=== PATIENT | male | born 1960 | race Caucasian/White ===

== ENCOUNTER → 2019-02-10 06:45 | Outpatient (CLI) | payer OTHER ==
[~2019-02-10 06:45] MED LIST: CILOSTAZOL PO; ENALAPRIL MALE2.5 MG PO; FORTAMET500 MG; KLONOPIN PO; LOVASTATIN10 MG PO; METFORMIN HCL500 MG PO; NEURONTIN800 MG PO; PROTONIX40 MG PO; RISPERDAL3 MG PO; SIMVASTATIN5 MG; TOPROL XL50 M1 PO; VASOTEC2.5 MG; [UNRECOGNIZED DRUG - OTHER] PO
== END | disposition home or self-care (01) ==
LOC: LAB 06:45 → RAD 06:45
DX: I10 Essential (primary) hypertension (principal); M46.96 Unspecified inflammatory spondylopathy, lumbar region; Z01.818 Encounter for other preprocedural examination

== ENCOUNTER 2019-02-19 04:55 | Day surgery (SDC) | payer OTHER | END 2019-02-19 10:15 | disposition home or self-care (01) | LOC: CIR.AMB 04:55 | DX: M51.16 Intervertebral disc disorders with radiculopathy, lumbar region (principal) ==

== ENCOUNTER 2022-06-17 09:48 | Outpatient (CLI) | payer OTHER | END 2022-06-17 09:52 | disposition home or self-care (01) | LOC: SONOGRAMA 09:48 | PROVIDERS: ATTEND Pathology Anatomic Pathology & Clinical Pathology | DX: D34 Benign neoplasm of thyroid gland (principal); E04.9 Nontoxic goiter, unspecified; R22.1 Localized swelling, mass and lump, neck; C49.0 Malignant neoplasm of connective and soft tissue of head, face and neck ==